=== PATIENT | male | born 1990 | race Hispanic/Latino ===

== ENCOUNTER 2021-06-13 13:05 | Emergency (ER) | payer SELFPAY ==
[2021-06-13] MEDS ORDERED: NA CHLORIDE 0.9% 1,000 ML ONE (13:50)
[2021-06-13 14:12] LABS: Absolute Lymphocytes (CBC) 2.3 K/uL (0.7-4.9); Basophils % 0.6 % (0-1.3); Hematocrit 47.6 % (39.6-49.0); Lymphocytes % 25.9 % (15.3-44.8); MPV 8.2 fL (7.6-11.3); RBC Red Blood Cell Count 5.49 M/uL (4.33-5.43)
[2021-06-13 14:18] LABS: BUN Blood Urea Nitrogen 11 mg/dL (7-18); Bicarbonate 25 mmol/L (21-32); Glucose Level 104 mg/dL (74-106); Sodium Level 136 mmol/L (136-145)
[2021-06-13] MEDS ORDERED: POTASSIUM CL SA 10 MEQ TAB PO ONE (14:50)
--- NOTE | 2021-06-13 15:13 | EDPHYS ---
Physician Documentation [facility] Name: Lionel Merida Age: 31 yrs Sex: Male : 1990 Arrival Date: 06/13/2021 Time: 13:07 Bed 30 Private MD: ED Physician Jose Warren HPI: 06/13 13:59 This 31 yrs old Male presents to ER via Ambulatory with complaints of can't kb eat, chills-fatigue. 13:59 The patient or guardian reports cough, that is intermittent, described as moderate, kb with no sputum, flu symptoms, low-grade fever, myalgias, no appetite. Onset: The symptoms/episode began/occurred 2 week(s) ago. Severity of symptoms: At their worst the symptoms were mild, moderate, in the emergency department the symptoms are unchanged. Modifying factors: The symptoms are alleviated by nothing, the symptoms are aggravated by nothing. Associated signs and symptoms: Pertinent positives: fever. The patient has not experienced similar symptoms in the past. The patient has not recently seen a physician. Pt reports fever, chills, cough, decreased appetite, bodyaches, fatigue and malaise for 2 weeks. Historical: - Allergies: 13:12 No Known Allergies; jl7 - Home Meds: 13:12 None [Active]; jl7 - PMHx: 13:12 None; jl7 - PSHx: 13:12 None; jl7 - Immunization history:: Adult Immunizations not up to date, Client reports having NOT received the Covid vaccine. - Social history:: Smoking status: unknown. ROS: 13:58 Cardiovascular: Negative for chest pain, palpitations, and edema. kb 13:58 Constitutional: Positive for body aches, chills, fatigue, fever, malaise, poor PO intake. 13:58 ENT: Positive for rhinorrhea, sinus congestion. 13:58 Respiratory: Positive for cough, Negative for dyspnea on exertion, hemoptysis, orthopnea, pleurisy, shortness of breath, sputum production, wheezing. 13:58 All other systems are negative. Exam: 13:58 Constitutional: This is a well developed, well nourished patient who is awake, alert, kb and in no acute distress. Head/Face: Normocephalic, atraumatic. ENT: Moist Mucous membranes Cardiovascular: Regular rate and rhythm with a normal S1 and S2. No gallops, murmurs, or rubs. No pulse deficits. Respiratory: Respirations even and unlabored. No increased work of breathing, no retractions or nasal flaring. Skin: Warm, dry with normal turgor. Normal color. MS/ Extremity: Pulses equal, no cyanosis. Neurovascular intact. Full, normal range of motion. Neuro: Awake and alert, GCS 15, oriented to person, place, time, and situation. Moves all extremities. Normal gait. Psych: Awake, alert, with orientation to person, place and time. Behavior, mood, and affect are within normal limits. Vital Signs: 13:11 BP 140 / 101; Pulse 121; Resp 19; Temp 97; Pulse Ox 95% ; Weight 104.33 kg; Height 5 jl7 ft. 11 in. (180.34 cm); 14:16 BP 115 / 81; Pulse 93; Resp 20; Temp 97.2; Pulse Ox 97% on R/A; kh1 13:11 Body Mass Index 32.08 (104.33 kg, 180.34 cm) jl7 MDM: 13:11 Patient medically screened. kb 13:59 Data reviewed: vital signs, nurses notes. Data interpreted: Pulse oximetry: on room air kb is 95 %. Interpretation: normal. Counseling: I had a detailed discussion with the patient and/or guardian regarding: the historical points, exam findings, and any diagnostic results supporting the discharge/admit diagnosis, radiology results, the need for outpatient follow up, a family practitioner, to return to the emergency department if symptoms worsen or persist or if there are any questions or concerns that arise at home. 06/13 13:14 Order name: CBC with Diff; Complete Time: 14:20 kb 06/13 13:14 Order name: Basic Metabolic Panel; Complete Time: 14:20 kb 06/13 13:14 Order name: Day Screen Profile; Complete Time: 14:33 kb 06/13 15:12 Order name: SARS-COV-2 RT PCR; Complete Time: 15:13 EDMS 06/13 13:14 Order name: IV Start; Complete Time: 13:31 kb Administered Medications: 13:31 Drug: NS 0.9% 1000 ml Route: IV; Rate: 1000 ml; Site: right antecubital; kh1 14:29 Drug: Potassium Chloride 40 mEq Route: PO; kh1 Disposition Summary: 06/13/21 15:12 Discharge Ordered Location: Home kb Condition: Stable kb Diagnosis - Coronavirus infection, unspecified kb Followup: kb - With: Emergency Department - When: As needed - Reason: Worsening of condition Followup: kb - With: Private Physician - When: 2 - 3 days - Reason: Recheck today's complaints, Continuance of care, Re-evaluation by your physician Discharge Instructions: - Discharge Summary Sheet kb - COVID-19 kb - COVID-19 Frequently Asked Questions kb - 10 Things You Can Do to Manage Your COVID-19 Symptoms at Home - [facility] kb Forms: - Medication Reconciliation Form kb - Thank You Letter kb - Antibiotic Education kb - Prescription Opioid Use kb Addendum: 06/15/2021 11:01 Co-signature as Attending Physician, Jose Warren MD I agree with the assessment and c fitch plan of care. Signatures: Dispatcher [employer] EDLaureen Nuñez, REGISTRAR ASSISTANT-C REGISTRAR ASSISTANT-Jose Joel MD MD cha Leal, Jahala, RN RN [id number] Tiny Patterson [facility] Corrections: (The following items were deleted from the chart) 06/13 14:11 13:15 CORONAVIRUS+[email or web address] ordered. [facility] EDMO
--- NOTE | 2021-06-13 15:13 | ER ---
Nurse's Notes [facility] Name: Lionel Merida Age: 31 yrs Sex: Male : 1990 Arrival Date: 06/13/2021 Time: 13:07 Bed 30 Private MD: Diagnosis: Coronavirus infection, unspecified Presentation: 06/13 13:11 Chief complaint: Patient states: Chills, cough, fever x 2 weeks. Coronavirus screen: jl7 Vaccine status: Patient reports being unvaccinated. chills, cough unrelated to allergies, fever, Client presents with at least one sign or symptom that may indicate coronavirus-19. Standard/surgical mask placed on the client. Provider contacted for isolation considerations. Ebola Screen: No symptoms or risks identified at this time. Initial Sepsis Screen: Does the patient meet any 2 criteria? HR > 90 bpm. Does the patient have a suspected source of infection? No. Patient's initial sepsis screen is negative. Risk Assessment: Do you want to hurt yourself or someone else? Patient reports no desire to harm self or others. Onset of symptoms was May 30, 2021. 13:11 Method Of Arrival: Ambulatory [facility] 13:11 Acuity: NAZIA 3 jl7 Triage Assessment: 13:12 General: Appears in no apparent distress. uncomfortable, Behavior is calm, cooperative, jl7 appropriate for age. Pain: Denies pain. Historical: - Allergies: 13:12 No Known Allergies; jl7 - Home Meds: 13:12 None [Active]; jl7 - PMHx: 13:12 None; jl7 - PSHx: 13:12 None; jl7 - Immunization history:: Adult Immunizations not up to date, Client reports having NOT received the Covid vaccine. - Social history:: Smoking status: unknown. Screenin:19 Abuse screen: Denies threats or abuse. Nutritional screening: No deficits noted. kh1 Tuberculosis screening: No symptoms or risk factors identified. Fall Risk None identified. No fall in past 12 months (0 pts). No secondary diagnosis (0 pts). IV access (20 points). Ambulatory Aid- None/Bed Rest/Nurse Assist (0 pts). Gait- Normal/Bed Rest/Wheelchair (0 pts) Mental Status- Oriented to own ability (0 pts). Assessment: 13:48 General: Appears in no apparent distress. comfortable, Behavior is calm, cooperative, kh1 appropriate for age. Neuro: Level of Consciousness is awake, alert, obeys commands, Oriented to person, place, time, situation, Customs Compliance Director are equal bilaterally Moves all extremities. Gait is steady, Speech is normal, Facial symmetry appears normal. Respiratory: No deficits noted. Reports shortness of breath at rest. 14:29 Reassessment: Patient appears in no apparent distress at this time. No changes from kh1 previously documented assessment. Patient and/or family updated on plan of care and expected duration. Pain level reassessed. Patient is alert, oriented x 3, equal unlabored respirations, skin warm/dry/pink. Vital Signs: 13:11 BP 140 / 101; Pulse 121; Resp 19; Temp 97; Pulse Ox 95% ; Weight 104.33 kg; Height 5 jl7 ft. 11 in. (180.34 cm); 14:16 BP 115 / 81; Pulse 93; Resp 20; Temp 97.2; Pulse Ox 97% on R/A; kh1 13:11 Body Mass Index 32.08 (104.33 kg, 180.34 cm) jl7 ED Course: 13:07 Patient arrived in ED. ds1 13:10 Laure[facility] Mcintyre [facility]C [facility] kb 13:10 Jose Warren MD is Attending Physician. kb 13:12 Triage completed. jl7 13:12 Arm band placed on right wrist. jl7 13:26 Tiny Patterson is Primary Nurse. kh1 13:31 Inserted saline lock: 20 gauge in right antecubital area, using aseptic technique. kh1 15:35 IV discontinued, intact, bleeding controlled, No redness/swelling at site. Pressure kh1 dressing applied. 15:36 No provider procedures requiring assistance completed. kh1 Administered Medications: 13:31 Drug: NS 0.9% 1000 ml Route: IV; Rate: 1000 ml; Site: right antecubital; kh1 14:29 Drug: Potassium Chloride 40 mEq Route: PO; kh1 Outcome: 15:12 Discharge ordered by . kb 15:36 Discharged to home ambulatory. kh1 15:36 Condition: stable 15:36 Discharge instructions given to patient, Instructed on discharge instructions, follow up and referral plans. Demonstrated understanding of instructions, follow-up care. 15:37 Patient left the ED. kh1 Signatures: Laureen Mcintyre GUNCOTTON PACKER-C GUNCOTTON PACKER-Ckb Barby Cannon ds1 David Davidson, RN RN jl7 Tiny Patterson kh1
[2021-06-13 15:45] VITALS: BP 115/81; TEMP 97.2; O2SAT 97
--- NOTE | 2021-06-15 16:01 | EKG ---
Test Date: 2021-06-13 Test Time: 18:20:37 Hot Head Machine Operator: LEXUS MEASUREMENT RESULTS: Intervals: Rate: 91 MA: 122 QRSD: 82 QT: 384 QTc: 472 Mcdonald: P: 59 MA: 122 QRS: 58 T: 61 INTERPRETIVE STATEMENTS: Normal sinus rhythm Normal ECG No previous ECG available for comparison Electronically Signed On 06-15-21 15:56:45 CDT by Gil Gonzalez
== END 2021-06-13 15:37 | disposition home or self-care (01) ==
LOC: ER 13:05
DX: U07.1 COVID-19 (principal)
CPT/HCPCS: 36415; 80048; 85025; 86308; 93005; 99283; J7030; U0003

== ENCOUNTER 2021-10-16 19:50 | Emergency (ER) | payer OTHER ==
[2021-10-16] MEDS ORDERED: ACETAMINOPHEN 500 MG TAB ONE (20:46)
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
[2021-10-16 22:22] VITALS: TEMP 98.8
[2021-10-16 22:24] VITALS: BP 120/75; O2SAT 100
== END 2021-10-16 22:02 | disposition home or self-care (01) ==
LOC: ER 19:50
DX: S00.93XA Contusion of unspecified part of head, initial encounter (principal); R07.9 Chest pain, unspecified; V47.0XXA Car driver injured in collision with fixed or stationary object in nontraffic accident, initial encounter
CPT/HCPCS: 70450; 72125; 99283